=== PATIENT | male | born 1975 | race Caucasian/White ===

== ENCOUNTER 2019-11-27 11:23 | Outpatient (CLI) | payer MEDICAID, SELFPAY ==
--- NOTE | ~2019-11-27 | XR_ITS ---
EXAMINATION: XR chest 2V DATE: 11/27/2019 11:52 INDICATION: Shortness of breath TECHNIQUE: PA and lateral views of the chest are obtained. COMPARISON: None available FINDINGS: The lungs are free of acute opacities. There is no pleural effusion or pneumothorax. The ca rdiomediastinal silhouette is normal. The visualized bones and soft tissues are unremarkable. IMPRESSION: 1. No acute cardiopulmonary abnormality. Reviewed, dictated and finalized at location A.
[2019-11-27 11:46] LABS: Add Urine Microscopic? NO; Appearance Urine Clear (Clear); Basophils Absolute Auto 0.07 K/mm3 (0.00-0.10); Basophils Percent Auto 1.2 % (0.0-1.0); Bilirubin Urine Negative (Negative); Blood Urine Negative (Negative); Color Urine Yellow (Yellow); Eosinophils Percent Auto 3.6 % (1.0-6.0); Glucose Urine UA Negative (Negative); Hematocrit 45.8 % (40.0-54.0); Hemoglobin 16.2 g/dL (14.0-18.0); Immature Granulocyte Absolute 0.02 K/mm3 (0.00-0.00); Immature Granulocyte Percent A 0.4 % (0.0-0.0); Ketones Urine Negative (Negative); Leukocyte Esterase Ur Negative (Negative); Lymphocytes Absolute Auto 1.15 K/mm3 (1.10-4.50); Lymphocytes Percent Auto 20.4 % (18.0-42.0); Mean Corpuscular HGB Conc 35.4 g/dL (32.0-36.0); Mean Corpuscular Hemoglobin 30.1 pg (27.0-31.0); Mean Platelet Volume 9.2 fl (8.7-11.0); Monocytes Absolute Auto 0.68 K/mm3 (0.10-0.90); Monocytes Percent Auto 12.1 % (2.0-11.0); Neutrophils Absolute Auto 3.5 K/mm3 (1.7-7.2); Neutrophils Percent Auto 62.3 % (50.0-70.0); Nitrate Urine Negative (Negative); Platelet Count Result 248 K/mm3 (150-420); Protein Urine Negative (Negative); Red Blood Count 5.39 M/mm3 (4.70-6.10); Red Cell Distribution Width 12.4 % (11.6-14.4); Specific Grav Ur 1.015 (1.010-1.020); Urobilinogen Urine 0.2 mg/dL (0.2-1.0); White Blood Count 5.6 K/mm3 (4.8-10.8)
[2019-11-27 12:12] LABS: Alanine Aminotransferase 70 U/L (16-63); Albumin Level 4.1 g/dL (3.4-5.0); Alkaline Phosphatase 48 U/L (46-116); Aspartate Amino Transferase 28 U/L (15-37); Bilirubin,Total 0.7 mg/dL (0.00-1.00); Blood Urea Nitrogen 14 mg/dL (7-18); Carbon Dioxide 27 mmol/L (21-32); Chloride 103 mmol/L (98-108); Cholesterol 206 mg/dL (0-200); Estimated Glomerular Filt Rate > 60; Glucose 106 mg/dL (70-99); HDL Direct 30 mg/dL (40-60); LDL Cholesterol Calculated 127 mg/dL (<130); Osmolality Calculated 286 mOsm/kg (285-295); Sodium 138 mmol/L (136-145); Thyroid Stimulating Hormone 2.03 uIU/mL (0.36-3.74); Triglycerides 243 mg/dL (0-150)
[2019-11-27 12:14] LABS: BNP < 5 pg/mL (0-100)
[2019-11-30 03:03] LABS: Hepatitis A Antibody IgM Nonreactive; Hepatitis B Core Antibody Nonreactive (Nonreactive); Hepatitis B Surface Antigen Nonreactive (Nonreactive); Hepatitis C Signal to Cutoff 0.46 ratio (<1.00); Hepatitis C Virus Antibody Nonreactive (Nonreactive)
== END 2019-11-27 11:24 | disposition home or self-care (01) ==
LOC: CHSLAB 11:34
PROVIDERS: PCP Internal Medicine; Visit Provider Internal Medicine
DX: Z00.00 Encounter for general adult medical examination without abnormal findings (principal); R06.00 Dyspnea, unspecified; R79.89 Other specified abnormal findings of blood chemistry
CPT/HCPCS: 36415; 71046; 80053; 80061; 80074; 81003; 83880; 84443; 85025

== ENCOUNTER 2019-12-08 07:45 | Outpatient (CLI) | payer SELFPAY ==
--- NOTE | ~2019-12-08 | US_ITS ---
EXAMINATION: US right upper quadrant DATE: 12/08/2019 08:20 INDICATION: Elevated liver enzymes TECHNIQUE: Multiple grayscale and Doppler ultrasound images of the abdomen were obtained. COMPARISON: None FINDINGS: The pancreatic head and body are normal in appearance. The pancreatic tail is not visualized. Visual ized proximal to mid inferior vena cava is normal. Liver has normal contour, with a smooth surface. T here is increased parenchymal echogenicity and coarsened echotexture consistent with diffuse hepatic steatosis. Typical small geographic region of focal fatty sparing along the gallbladder fossa. There is a more discrete nodular hypoechoic region in the left hepatic lobe measuring 1.6 x 1.2 x 1.3 cm. N o intrahepatic biliary duct dilation suspected. Portal venous flow was seen in the hepatopetal, jose ramon l direction and has normal Doppler waveform. The gallbladder is normal in appearance. There is no ch olelithiasis. The common bile duct measures 3 mm, which is normal. Sonographic Malhotra sign was report ed as negative by the counter manager. IMPRESSION: 1. Diffuse hepatic steatosis with focal fatty sparing along the gallbladder fossa. 2. 1.6 cm hypoechoic nodule in the left hepatic lobe. Differential would include either additional at ypical region of focal fatty sparing or neoplasm, either benign such as hemangioma or focal nodular h yperplasia or malignant either primary or metastatic. Recommend further evaluation with pre and postc ontrast MRI or CT. Reviewed, dictated and finalized at location A. IMPRESSION: 1. Diffuse hepatic steatosis with focal fatty sparing along the gallbladder fos sa. 2. 1.6 cm hypoechoic nodule in the left hepatic lobe. Differential would includ e either additional atypical region of focal fatty sparing or neoplasm, either benign such as hemangioma or focal nodular hyperplasia or malignant either prim vj or metastatic. Recommend further evaluation with pre and postcontrast MRI o r CT.
== END 2019-12-08 07:46 | disposition home or self-care (01) ==
PROVIDERS: PCP Internal Medicine; Visit Provider Internal Medicine
DX: R79.89 Other specified abnormal findings of blood chemistry (principal)
CPT/HCPCS: 76705

== ENCOUNTER 2020-01-09 09:27 | Outpatient (CLI) | payer OTHER, SELFPAY ==
--- NOTE | ~2020-01-09 | MR_ITS ---
EXAMINATION: MR abdomen wo/w con DATE: 01/09/2020 11:16 INDICATION: Liver mass. TECHNIQUE: Magnetic resonance imaging (MRI) of the abdomen was performed without and with 20 mL Multi Cooper intravenous contrast. Sequences included coronal T2-weighted FS FSE, coronal and axial FS FIEST A, axial T2-weighted FSE, coronal LAVA-flex, axial STIR FSE, axial DWI, axial dual-echo T1-weighted F SPGR, and axial LAVA. Postcontrast sequences included coronal LAVA-flex and a time course of axial LA VA. COMPARISON: Ultrasound abdomen 12/08/2019 FINDINGS: In the left hepatic lobe, there is a 13 mm arterially hyperenhancing mass. No washout. There is mild splenomegaly measuring 13.4 cm. The gallbladder, pancreas, adrenal glands, and kidneys are normal. Th ere are no dilated loops of bowel. There are no pathologically enlarged lymph nodes. There is no free intraperitoneal fluid. IMPRESSION: 1. 13 mm arterially hyperenhancing liver mass correlating with the ultrasound abnormality. In the abs ence of known malignancy or chronic liver disease, this finding is likely a hemangioma or focal nodul ar hyperplasia. 2. Mild splenomegaly. Reviewed, dictated and finalized at location E. IMPRESSION: 1. 13 mm arterially hyperenhancing liver mass correlating with the ultrasound a bnormality. In the absence of known malignancy or chronic liver disease, this f inding is likely a hemangioma or focal nodular hyperplasia. 2. Mild splenomegaly.
[2020-01-09 10:04] LABS: Estimated Glomerular Filt Rate > 60
== END 2020-01-09 09:28 | disposition home or self-care (01) ==
LOC: CHSIMG 09:28
PROVIDERS: PCP Internal Medicine; Visit Provider Internal Medicine
DX: R16.0 Hepatomegaly, not elsewhere classified (principal)
CPT/HCPCS: 36415; 74183; A9577

== ENCOUNTER 2020-12-14 12:15 | Outpatient (CLI) | payer OTHER, SELFPAY ==
[2020-12-14 13:25] LABS: Influenza A QL RT-PCR Negative (Negative); Influenza B QL RT-PCR Negative (Negative); SARS-CoV-2 RNA PCR Positive (Negative)
== END 2020-12-14 12:16 | disposition home or self-care (01) ==
LOC: CHSLAB 12:20
PROVIDERS: PCP Internal Medicine; Visit Provider Internal Medicine
DX: U07.1 COVID-19 (principal)
CPT/HCPCS: 87502; C9803; U0003; U0005

== ENCOUNTER 2020-12-26 17:19 | Outpatient (CLI) | payer OTHER, SELFPAY ==
--- NOTE | ~2020-12-26 | XR_ITS ---
EXAMINATION: XR chest 2V 12/26/2020 17:46 INDICATION: Cough and shortness of breath PROCEDURE: PA and lateral view of the chest COMPARISON: 11/27/2019 FINDINGS: The lungs are clear. The cardiomediastinal silhouette is within normal limits. There are no pleural effusions. There is no pneumothorax suspected. IMPRESSION: 1: NO ACUTE CARDIOPULMONARY DISEASE. Reviewed, dictated and finalized at location A.
[2020-12-26 17:42] LABS: Basophils Absolute Auto 0.05 K/mm3 (0.00-0.10); Basophils Percent Auto 0.7 % (0.0-1.0); Eosinophils Absolute Auto 0.08 K/mm3 (0.02-0.50); Hematocrit 40.7 % (40.0-54.0); Hemoglobin 14.6 g/dL (14.0-18.0); Immature Granulocyte Absolute 0.05 K/mm3 (0.00-0.00); Immature Granulocyte Percent A 0.7 % (0.0-0.0); Lymphocytes Absolute Auto 1.02 K/mm3 (1.10-4.50); Lymphocytes Percent Auto 13.4 % (18.0-42.0); Mean Corpuscular HGB Conc 35.9 g/dL (32.0-36.0); Mean Corpuscular Hemoglobin 30.5 pg (27.0-31.0); Mean Corpuscular Volume 85.1 fL (78.0-102.0); Mean Platelet Volume 9.1 fl (8.7-11.0); Monocytes Absolute Auto 0.76 K/mm3 (0.10-0.90); Monocytes Percent Auto 9.9 % (2.0-11.0); Neutrophils Absolute Auto 5.7 K/mm3 (1.7-7.2); Neutrophils Percent Auto 74.3 % (50.0-70.0); Platelet Count Result 261 K/mm3 (150-420); Red Blood Count 4.78 M/mm3 (4.70-6.10); White Blood Count 7.6 K/mm3 (4.8-10.8)
[2020-12-26 18:05] LABS: Alanine Aminotransferase 36 U/L (16-63); Albumin Level 3.9 g/dL (3.4-5.0); Alkaline Phosphatase 52 U/L (46-116); Anion Gap 9 mmol/L (8-16); Aspartate Amino Transferase 20 U/L (15-37); Bilirubin,Total 0.7 mg/dL (0.00-1.00); Blood Urea Nitrogen 16 mg/dL (7-18); CRP < 0.5 mg/dL (0.0-0.9); Calcium 8.6 mg/dL (8.5-10.1); Carbon Dioxide 29 mmol/L (21-32); Chloride 104 mmol/L (98-108); Estimated Glomerular Filt Rate > 60; Glucose 91 mg/dL (70-99); Osmolality Calculated 295 mOsm/kg (285-295); Potassium 3.8 mmol/L (3.5-5.1); Sodium 142 mmol/L (136-145); Total Protein 7.5 g/dL (6.4-8.2)
[2020-12-26 18:19] LABS: D Dimer 0.25 mg/L (0.19-0.50)
== END 2020-12-26 17:20 | disposition home or self-care (01) ==
LOC: CHSIMG 17:25
PROVIDERS: PCP Internal Medicine; Visit Provider Internal Medicine
DX: R05 Cough (principal); R06.02 Shortness of breath; U07.1 COVID-19
CPT/HCPCS: 36415; 71046; 80053; 85025; 85380; 86140

== ENCOUNTER 2024-03-06 13:17 | Outpatient (CLI) | payer OTHER, SELFPAY ==
--- NOTE | ~2024-03-06 | XR_ITS ---
Clinical Indication: Bodyaches, fatigue PA and lateral views of the chest: Comparison: 12/26/2020 Findings: The lungs are clear, without evidence of focal consolidation or pleural effusion. Cardiome diastinal silhouette is within normal limits. Bones and soft tissues are unremarkable. Impression: Normal chest. Reviewed, dictated and finalized at location . Impression: Normal chest.
== END 2024-03-06 13:18 | disposition home or self-care (01) ==
LOC: CHSIMG 13:19
PROVIDERS: PCP Internal Medicine; Visit Provider Nurse Practitioner Family
DX: R68.83 Chills (without fever) (principal); R53.83 Other fatigue; E78.5 Hyperlipidemia, unspecified
CPT/HCPCS: 71046

== ENCOUNTER 2025-02-16 16:15 | Outpatient (CLI) | payer OTHER, SELFPAY ==
--- NOTE | ~2025-02-16 | XR_ITS ---
Clinical Indication: Inhalational injury PA and lateral views of the chest: Comparison: 03/06/2024 Findings: The lungs are clear, without evidence of focal consolidation or pleural effusion. Cardiome diastinal silhouette is within normal limits. Bones and soft tissues are unremarkable. Impression: Normal chest. Reviewed, dictated and finalized at [facility]. Impression: Normal chest.
--- OUTSIDE RECORDS SUMMARY | 2025-02-16 16:18 | XMS_ITS | Clinical Summary ---
Author Organization [facility] Address [address] [place] [address] Care Team Providers Care Customer Contact Specialist Name Role Phone Unavailable Primary Care Provider Unavailabl e Source Comments [facility],non-owned Affiliates and Associated Physician Practices is amultiple site organization consisting of ambulatory clinics and hospital sitesin [place], [place], [place] and [place]. This disclosure is being madepursuant to the Care Everywhere program and may not contain all information available regarding this patient. Last updated 18.[facility] Allergies No known active allergies Medications * Be aware that medications may not be up to date on this document. Alwaysverify current medications with the patient. Esomeprazole Magnesium (NEXIUM PO) Active predniSONE (DELTASONE) 20 MG tablet Take 60 mg (3 tabs) on day 1, then 2 tabs (40 mg) X 6 days 15 Tab 0 07/06/2015 Active Social History Tobacco Use Types Packs/Day Years Used Date Smoking Tobacco: Never Alcohol Use Standard Drinks/Week Comments Yes 0 (1 standard drink = 0.6 oz pur e alcohol) occ Sex and Gender Information Value Date Recorded Sex Assigned at Not on file Legal Sex Male 3:17 AM LENS EDGE GRINDER MACHINE Gender Identity Not on file Sexual Orientation Not on file Last Filed Vital Signs Vital Sign Reading Time Taken Comments Blood Pressure 134/86 07/06/2015 3:55 PM LENS EDGE GRINDER MACHINE Pulse 87 07/06/2015 3:55 PM LENS EDGE GRINDER MACHINE Temperature 36.7 C (98 F) 07/06/2015 3:55 PM LENS EDGE GRINDER MACHINE Respiratory Rate 16 07/06/2015 3:55 PM LENS EDGE GRINDER MACHINE Oxygen Saturation 98% 07/06/2015 3:55 PM LENS EDGE GRINDER MACHINE Inhaled Oxygen Concentration - - Weight 84.8 kg (187 lb) 07/06/2015 3:55 PM LENS EDGE GRINDER MACHINE Height 180.3 cm (5' 11) 07/06/2015 3:55 PM LENS EDGE GRINDER MACHINE Body Mass Index 26.08 07/06/2015 3:55 PM LENS EDGE GRINDER MACHINE Plan of Treatment Health Maintenance Due Date Last Done Comments COLOGUARD (AGES 45-75) - COL ON CA SCREENING 1975 COLON MONITORING 1975 COLONOSCOPY - COLON CA SCREENING 1975 CT COLONOGRAPHY - COLON CA SCREENING 1975 Colorectal Cancer Screening 1975 FIT - COLON CA SCREENING 1975 FLEX SIG - COLON CA SCREENING 1975 LIPID TESTING 1975 HIV SCREENING 12/23/1990 HEPATITIS C SCREENING 12/19/1993 DTAP/TDAP/TD VACCINES (1 - Tdap) 12/23/1994 HEPATITIS B VACCINE (1 of 3 - 19+ 3-dose series) 12/23/1994 COVID-19 VACCINE (1 - 2023-2 5 season) 2024 DEPRESSION SCREENING 08/05/2024 INFLUENZA VACCINE (#1) 2025 ZOSTER VACCINE (1 of 2) 12/23/2025 HIB VACCINE Aged Out No longer eligi ble based on patient's age to complete this topic HPV VACCINE Aged Out No longer eligi ble based on patient's age to complete this topic MENINGOCOCCAL (Group B) VACC INE SHARED DECISION-MAKING Aged Out No longer eligibl e based on patient's age to complete this topic MENINGOCOCCAL GROUPS A/C/Y/W VACCINE Aged Out No longer eligible b ased on patient's age to complete this topic Insurance [facility]
--- OUTSIDE RECORDS SUMMARY | 2025-02-16 16:18 | XMS_ITS | Clinical Summary ---
Author Organization [facility] Address [address] [facility], [address] [address] Phone Care Team Providers Care Chain Saw Operator Name Role Phone Hayder Barrientos MD Primary Care Provider [phone] Allergies No known active allergies Medications omeprazole (PRILOSEC) 40 MG CAPSULE DELAYED RELEASE TAKE 1 CAPSULE BY MOUTH EVERY DAY 1 08/16/2018 Active Family History Medical History Relation Name Comments Emphysema Father Cancer Maternal Grandfather stomach Relation Name Status Comments Father Maternal Grandfather Mother Alive Social History Tobacco Use Types Packs/Day Years Used Date Smoking Tobacco: Never Smokeless Tobacco: Never Alcohol Use Standard Drinks/Week Comments No 0 (1 standard drink = 0.6 oz pur e alcohol) Sex and Gender Information Value Date Recorded Sex Assigned at Not on file Legal Sex Male 10:34 AM COMBINATION OPERATOR Gender Identity Not on file Sexual Orientation Not on file Last Filed Vital Signs Vital Sign Reading Time Taken Comments Blood Pressure 125/89 09/22/2018 10:02 AM COMBINATION OPERATOR Pulse 70 09/22/2018 8:56 AM COMBINATION OPERATOR Temperature 36 C (96.8 F) 09/22/2018 10:02 AM COMBINATION OPERATOR Respiratory Rate 14 09/22/2018 10:02 AM COMBINATION OPERATOR Oxygen Saturation 96% 09/22/2018 10:02 AM COMBINATION OPERATOR Inhaled Oxygen Concentration - - Weight 87.1 kg (192 lb) 09/03/2018 9:00 AM COMBINATION OPERATOR Height 177.8 cm (5' 10) 09/03/2018 9:00 AM COMBINATION OPERATOR Body Mass Index 27.55 09/03/2018 9:00 AM COMBINATION OPERATOR Plan of Treatment Health Maintenance Due Date Last Done Comments Hepatitis C Virus (HCV) Screening 1975 TdaP Immunization 1975 Hepatitis B Immunization (1 of 3 - 19+ 3-dose series) 12/23/1994 Cologuard 12/23/2020 Colonoscopy 12/23/2020 Colorectal Cancer Screening 12/23/2020 Immunochemical Fecal Occult Blood 12/23/2020 SARS-COV-2 Immunization (2023- season) 2024 Influenza Immunization (#1) 2025 Respiratory Syncytial Virus (RSV) Immunization (Adult) (1 - 1-dose 75+ series) 12/23/2050 Human Papillomavirus (HPV) Immunization Aged Out No longer eligible b ased on patient's age to complete this topic Meningococcal Immunization (ACWY) Aged Out No longer eligible based on patient's age to complete this topic Pneumococcal Immunization Combined Aged Out No longer eligible based on patient's age to complete this topic Rotavirus Immunization Aged Out No lo nger eligible based on patient's age to complete this topic Insurance MEDICAID [employer] Care Teams Chain Saw Operator Relationship Specialty Start Date End Date Hayder Barrientos MD [address] [place] [address] PCP - General Internal Medicine 08/25/18
--- OUTSIDE RECORDS SUMMARY | 2025-02-16 16:18 | XMS_ITS | Clinical Summary ---
Author Organization [facility] Address [address] [place] [address] Care Team Providers Care Research Computing Specialist Name Role Phone Unavailable Primary Care Provider Unavailabl e Social History Tobacco Use Types Packs/Day Years Used Date Smoking Tobacco: Never Assessed Sex and Gender Information Value Date Recorded Sex Assigned at Not on file Legal Sex Male 7:41 AM CDT Gender Identity Not on file Sexual Orientation Not on file Plan of Treatment Health Maintenance Due Date Last Done Comments Colorectal Cancer Screening Colonoscopy (10 Years) 1975 Annual Physical 12/23/1978 Hepatitis C 12/23/1993 DTaP, Tdap and Td Vaccines ( 1 - Tdap) 12/23/1994 Hepatitis B Vaccines (1 of 3 - 19+ 3-dose series) 12/23/1994 COVID-19 Vaccine ( - 2023-2 5 season) 2024 Meningococcal B Vaccine Aged Out No l onger eligible based on patient's age to complete this topic Meningococcal Vaccine Aged Out No xochitl celso eligible based on patient's age to complete this topic Pneumococcal Vaccine: Pediat rics (0 to 5 Years) and At-Risk Patients (6 to 49 Years) Aged Out No longer eligible b ased on patient's age to complete this topic RSV Immunizations Under 20 Months Aged Out No longer eligible based on patient's age to complete this topic
--- OUTSIDE RECORDS SUMMARY | 2025-02-16 16:18 | XMS_ITS | Clinical Summary ---
Author Organization [facility] Address [address] [place] [address] Care Team Providers Care Campus Administrator Name Role Phone Katherine Kellogg RN Unavailable [phone] Hayder Barrientos MD Primary Care Provider [phone] Allergies No known active allergies Medications esomeprazole DR (NexIUM) 40 mg capsule Take 40 mg by mouth daily before breakfast Active Active Problems Problem Noted Date Diagnosed Date Cirrhosis, nonalcoholic 08/10/2020 Assessment & Plan (08/10/2020 12:53 PM MEDICAL TECHNOLOGIST GENERALIST): Based on nodular appearance of the liver on the MRI and splenomegaly suggestive of portal hypertension. The etiology of the cirrhosis is unclear. He has no obvious risk factors. Thus, I will check a number of serologies in levels to rule out multiple causes of liver disease. We discussed scarring of the liver due to longstanding inflammation. This scarring can lead to an increase in pressure within the blood vessels, leading to varicose type veins in the esophagus, fluid in the abdomen, and the buildup of toxins that can cause confusion. Cirrhosis increases the risk of the development of hepatocellular carcinoma. This necessitates screening for liver cancer with an abdominal ultrasound approximately every 6 months. We discussed the potential need for a liver transplant, if liver function worsened and there are no obvious contraindications. If the blood tests identify a treatable liver disease, I will proceed as clinically indicated. If the blood tests are unrevealing, additional intervention may be needed. Gastroesophageal reflux disease without esophagi tis 08/10/2020 Liver lesion, left lobe 08/10/2020 Assessment & Plan (08/10/2020 12:51 PM MEDICAL TECHNOLOGIST GENERALIST): Based on imaging studies, concerning for hepatocellular carcinoma. The lack of growth is encouraging, however, the lesion needs to be closely monitored. He is scheduled for an MRI later today. We discussed liver cancer and its current treatment. Surgical removal is an option in patients without cirrhosis. In cirrhotic patients, resection is usually associated with post-operative decompensation and/or liver failure. Chemotherapy routinely is not used as first line therapy, due to a lack of response. Angiographic procedures, such as trans-arterial chemoembolization and trans- arterial radio-embolization, are often used as a means of killing off cancer cells with follow up imaging 1-3 months later. This is not seen as a cure, but may eradicate a majority of the cancer. Liver transplantation is another option, usually performed after one of the above procedures. If the cancer meets well defined criteria, liver transplantation can be performed successfully with a 75% 5 year cancer free survival. Further recommendations based on the results of the MRI. NAFLD (nonalcoholic fatty liver disease) 021 Assessment & Plan (08/10/2020 12:54 PM MEDICAL TECHNOLOGIST GENERALIST): Fatty infiltration of the liver has been seen on several imaging studies. He does not have the usual features of non-alcoholic steatohepatitis, i.e., obesity and features of the metabolic syndrome. Further recommendations based on the results of the studies ordered. Surgical History Surgery Date Site/Laterality Comments ARTHROSCOPIC REPAIR ACL Left HERNIA REPAIR NOSE SURGERY 08/05/2008 - 08/04/2009 Medical History Medical History Date Comments Pneumonia Mitral valve prolapse Cancer (HCC) Family History Medical History Relation Name Comments COPD Father Hyperlipidemia Mother Hypothyroidism Mother Relation Name Status Comments Father Mother Social History Tobacco Use Types Packs/Day Years Used Date Smoking Tobacco: Never Smokeless Tobacco: Never Alcohol Use Standard Drinks/Week Comments Not Currently 0 (1 standard drink = 0.6 oz pur e alcohol) Remote Personal Safety Answer Date Recorded Getting School Help Needed Not on file 09/29 Sex and Gender Information Value Date Recorded Sex Assigned at Not on file Legal Sex Male 3:15 AM MEDICAL TECHNOLOGIST GENERALIST Gender Identity Not on file Sexual Orientation Not on file 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 Not on file Not on file Obstetrics History Last Filed Vital Signs Vital Sign Reading Time Taken Comments Blood Pressure 137/92 08/10/2020 10:03 AM MEDICAL TECHNOLOGIST GENERALIST Pulse 84 08/10/2020 10:03 AM MEDICAL TECHNOLOGIST GENERALIST Temperature 36.4 C (97.5 F) 08/10/2020 10:03 AM MEDICAL TECHNOLOGIST GENERALIST Respiratory Rate - - Oxygen Saturation - - Inhaled Oxygen Concentration - - Weight 91.5 kg (201 lb 12.8 oz) 021 10:03 AM MEDICAL TECHNOLOGIST GENERALIST Height 180.3 cm (5' 11) 08/10/2020 10: 03 AM MEDICAL TECHNOLOGIST GENERALIST Body Mass Index 28.15 08/10/2020 10:03 AM MEDICAL TECHNOLOGIST GENERALIST Plan of Treatment Not on file Medical Devices Implanted Type Area Aviation Maintenance Technician Device Identifier Shelf Expiration Date Model / Serial / Lot Left Acl Repair-05/02/2009 Implanted:2008 (Quantity not on file) Knee Insurance [facility] Care Teams Campus Administrator Relationship Specialty Start Date End Date Hayder Barrientos MD [address] [address] PCP - General Internal Medicine 02/26/20 Katherine Kellogg RN [address] [address] Secondary Liver Coordinator 02/23/20
--- OUTSIDE RECORDS SUMMARY | 2025-02-16 16:18 | XMS_ITS | Referral Summary ---
Author Organization [facility] Address [address] [place] [address] Care Team Providers Care Bookseamer Blindstitch Name Role Phone Katherine Kellogg RN Unavailable [phone] Hayder Barrientos MD Primary Care Provider [phone] Allergies No known active allergies Medications esomeprazole DR (NexIUM) 40 mg capsule Take 40 mg by mouth daily before breakfast Active Active Problems Problem Noted Date Diagnosed Date Cirrhosis, nonalcoholic 08/10/2020 Assessment & Plan (08/10/2020 12:53 PM EXTRUSION TECHNICIAN): Based on nodular appearance of the liver [...] 08/10/2020 Assessment & Plan (08/10/2020 12:51 PM EXTRUSION TECHNICIAN): Based on imaging studies, concerning for hepatocellular [...] 021 Assessment & Plan (08/10/2020 12:54 PM EXTRUSION TECHNICIAN): Fatty infiltration of the liver has been seen on several imaging studies. He does not have the usual features of non-alcoholic steatohepatitis, i.e., obesity and features of the metabolic syndrome. Further recommendations based on the results of the studies ordered. 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 Not on file Not on file Last Filed Vital Signs Vital Sign Reading Time Taken Comments Blood Pressure 137/92 08/10/2020 10:03 AM EXTRUSION TECHNICIAN Pulse 84 08/10/2020 10:03 AM EXTRUSION TECHNICIAN Temperature 36.4 C (97.5 F) 08/10/2020 10:03 AM EXTRUSION TECHNICIAN Respiratory Rate - - Oxygen Saturation - - Inhaled Oxygen Concentration - - Weight 91.5 kg (201 lb 12.8 oz) 021 10:03 AM EXTRUSION TECHNICIAN Height 180.3 cm (5' 11) 08/10/2020 10: 03 AM EXTRUSION TECHNICIAN Body Mass Index 28.15 08/10/2020 10:03 AM EXTRUSION TECHNICIAN Plan of Treatment Not on file Medical Devices Implanted Type Area Mentally Impaired Teacher Device Identifier Shelf Expiration Date Model / Serial / Lot Left Acl Repair-05/02/2009 Implanted:2008 (Quantity not on file) Knee Insurance [facility] Care Teams Bookseamer Blindstitch Relationship Specialty Start Date End Date Hayder Barrientos MD [address] [address] PCP - General Internal Medicine 02/26/20 Katherine Kellogg, TEJAS [address] [address] Secondary Liver Coordinator 02/23/20
[2025-02-16 16:33] LABS: Hematocrit 38.3 % (40.0-54.0); Hemoglobin 12.7 g/dL (14.0-18.0); Mean Corpuscular HGB Conc 33.2 g/dL (32-36); Mean Corpuscular Hemoglobin 27.1 pg (27.0-31.0); Mean Corpuscular Volume 81.7 fL (78.0-102.0); Platelet Count Result 263 K/mm3 (150-420); Red Blood Count 4.69 M/mm3 (4.70-6.10); White Blood Count 6.5 K/mm3 (4.8-10.8)
[2025-02-16 16:56] LABS: Alanine Aminotransferase 22 U/L (6-50); Albumin Level 4.4 g/dL (3.5-5.1); Alkaline Phosphatase 48 U/L (38-126); Anion Gap 8 mmol/L (4-12); Aspartate Amino Transferase 26 U/L (17-59); Bilirubin,Total 0.9 mg/dL (0.2-1.3); Blood Urea Nitrogen 14 mg/dL (9-20); Calcium 8.8 mg/dL (8.4-10.2); Carbon Dioxide 26 mmol/L (22-30); Chloride 106 mmol/L (98-107); Estimated Glomerular Filt Rate > 60; Glucose 90 mg/dL (65-110); Osmolality Calculated 290 mOsm/kg (285-295); Potassium 3.5 mmol/L (3.4-5.0); Sodium 140 mmol/L (137-145); Total Protein 7.3 g/dL (6.3-8.2)
[2025-02-17 10:56] LABS: Iron 52 ug/dL (49-181)
[2025-02-17 11:05] LABS: Percent Iron Saturation 10 % (20-50)
[2025-02-17 11:32] LABS: Ferritin 6.86 ng/mL (17.9-464)
== END 2025-02-16 16:16 | disposition home or self-care (01) ==
LOC: CHSLAB 16:17
PROVIDERS: PCP Internal Medicine; Visit Provider Nurse Practitioner Family
DX: J68.9 Unspecified respiratory condition due to chemicals, gases, fumes and vapors (principal)
CPT/HCPCS: 36415; 71046; 80053; 82728; 83540; 83550; 85027

== ENCOUNTER 2025-03-17 16:56 | Outpatient (CLI) | payer OTHER, SELFPAY ==
--- NOTE | ~2025-03-17 | XR_ITS ---
EXAMINATION: XR chest 2V Exam Date/Time: 03/17/2025 17:10 CDT HISTORY: cough Comparison: 02/16/2025. RESULT: Lines, tubes, and devices: None. Lungs and pleura: Clear. Cardiomediastinal silhouette: Stable. Other: No acute osseous or upper abdominal finding. IMPRESSION: No acute cardiopulmonary process. Reviewed, dictated and finalized at location K.
--- OUTSIDE RECORDS SUMMARY | 2025-03-17 16:59 | XMS_ITS | Clinical Summary ---
Author Organization [facility] Address [address] [place] [address] Care Team Providers Care Harness Rigger Name Role Phone Unavailable Primary Care Provider Unavailabl e Source Comments [facility],non-owned Affiliates and Associated Physician Practices is amultiple site organization consisting of ambulatory clinics and hospital sitesin [place], [place], [place] and [place]. This disclosure is being madepursuant to the Care Everywhere program and may not contain all information available regarding this patient. Last updated 18.[facility] Allergies No known active allergies Medications * [...] on file Legal Sex Male 3:17 AM BRINE MIXER OPERATOR Gender Identity Not on file Sexual Orientation Not on file Last Filed Vital Signs Vital Sign Reading Time Taken Comments Blood Pressure 134/86 07/06/2015 3:55 PM BRINE MIXER OPERATOR Pulse 87 07/06/2015 3:55 PM BRINE MIXER OPERATOR Temperature 36.7 C (98 F) 07/06/2015 3:55 PM BRINE MIXER OPERATOR Respiratory Rate 16 07/06/2015 3:55 PM BRINE MIXER OPERATOR Oxygen Saturation 98% 07/06/2015 3:55 PM BRINE MIXER OPERATOR Inhaled Oxygen Concentration - - Weight 84.8 kg (187 lb) 07/06/2015 3:55 PM BRINE MIXER OPERATOR Height 180.3 cm (5' 11) 07/06/2015 3:55 PM BRINE MIXER OPERATOR Body Mass Index 26.08 07/06/2015 3:55 PM BRINE MIXER OPERATOR Plan of Treatment Health Maintenance Due [...] patient's age to complete this topic Insurance [facility]
--- OUTSIDE RECORDS SUMMARY | 2025-03-17 16:59 | XMS_ITS | Clinical Summary ---
Author Organization [facility] Address [address] [place] [address] Care Team Providers Care Heating Unit Installer Name Role Phone Katherine Kellogg RN Unavailable [phone] Hayder Barrientos MD Primary Care Provider [phone] Allergies No known active allergies Medications esomeprazole DR (NexIUM) 40 mg capsule Take 40 mg by mouth daily before breakfast Active Active Problems Problem Noted Date Diagnosed Date Cirrhosis, nonalcoholic 08/10/2020 Assessment & Plan (08/10/2020 12:53 PM MOTOR RACER): Based on nodular appearance of the liver [...] 08/10/2020 Assessment & Plan (08/10/2020 12:51 PM MOTOR RACER): Based on imaging studies, concerning for hepatocellular [...] 021 Assessment & Plan (08/10/2020 12:54 PM MOTOR RACER): Fatty infiltration of the liver has been [...] on file Legal Sex Male 3:15 AM MOTOR RACER Gender Identity Not on file Sexual Orientation Not on file 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 Not on file Not on file Obstetrics History Last Filed Vital Signs Vital Sign Reading Time Taken Comments Blood Pressure 137/92 08/10/2020 10:03 AM MOTOR RACER Pulse 84 08/10/2020 10:03 AM MOTOR RACER Temperature 36.4 C (97.5 F) 08/10/2020 10:03 AM MOTOR RACER Respiratory Rate - - Oxygen Saturation - - Inhaled Oxygen Concentration - - Weight 91.5 kg (201 lb 12.8 oz) 021 10:03 AM MOTOR RACER Height 180.3 cm (5' 11) 08/10/2020 10: 03 AM MOTOR RACER Body Mass Index 28.15 08/10/2020 10:03 AM MOTOR RACER Plan of Treatment Not on file Medical Devices Implanted Type Area Assistant Art Director Device Identifier Shelf Expiration Date Model / Serial / Lot Left Acl Repair-05/02/2009 Implanted:2008 (Quantity not on file) Knee Insurance [facility] Care Teams Heating Unit Installer Relationship Specialty Start Date End Date Hayder Barrientos MD [address] [address] PCP - General Internal Medicine 02/26/20 Katherine Kellogg RN [address] [address] Secondary Liver Coordinator 02/23/20
--- OUTSIDE RECORDS SUMMARY | 2025-03-17 16:59 | XMS_ITS | Clinical Summary ---
Author Organization [facility] Address [address] [place] [address] Care Team Providers Care Risk Officer Name Role Phone Unavailable Primary Care Provider [...]
--- OUTSIDE RECORDS SUMMARY | 2025-03-17 16:59 | XMS_ITS | Clinical Summary ---
Author Organization [facility] Address [address] [facility], [address] [address] Phone Care Team Providers Care Section Crews Activities Clerk Name Role Phone Hayder Barrientos MD Primary Care Provider [phone] Allergies No known active allergies Medications omeprazole [...] on file Legal Sex Male 10:34 AM TAXICAB STARTER Gender Identity Not on file Sexual Orientation Not on file Last Filed Vital Signs Vital Sign Reading Time Taken Comments Blood Pressure 125/89 09/22/2018 10:02 AM TAXICAB STARTER Pulse 70 09/22/2018 8:56 AM TAXICAB STARTER Temperature 36 C (96.8 F) 09/22/2018 10:02 AM TAXICAB STARTER Respiratory Rate 14 09/22/2018 10:02 AM TAXICAB STARTER Oxygen Saturation 96% 09/22/2018 10:02 AM TAXICAB STARTER Inhaled Oxygen Concentration - - Weight 87.1 kg (192 lb) 09/03/2018 9:00 AM TAXICAB STARTER Height 177.8 cm (5' 10) 09/03/2018 9:00 AM TAXICAB STARTER Body Mass Index 27.55 09/03/2018 9:00 AM TAXICAB STARTER Plan of Treatment Health Maintenance Due Date [...] Insurance MEDICAID [employer] Care Teams Section Crews Activities Clerk Relationship Specialty Start Date End Date Hayder Barrientos MD [address] [place] [address] PCP - General Internal Medicine 08/25/18
[2025-03-17 17:16] LABS: Hematocrit 42.0 % (40.0-54.0); Hemoglobin 14.1 g/dL (14.0-18.0); Immature Reticulocyte Fraction 14.0 % (2.0-16.52); Mean Corpuscular HGB Conc 33.6 g/dL (32-36); Mean Corpuscular Hemoglobin 27.9 pg (27.0-31.0); Mean Corpuscular Volume 83.2 fL (78.0-102.0); Platelet Count Result 282 K/mm3 (150-420); Red Blood Count 5.05 M/mm3 (4.70-6.10); Reticulocyte Hemoglobin Conten 34.7 pg (28.0-35.0); Reticulocytes Absolute 0.08 M/mm3 (0.02-0.10); White Blood Count 6.6 K/mm3 (4.8-10.8)
[2025-03-17 17:18] LABS: Add Urine Microscopic? NO; Appearance Urine Clear (Clear); Glucose Urine UA Negative (Negative); Leukocyte Esterase Ur Negative (Negative); Nitrate Urine Negative (Negative); Specific Grav Ur 1.010 (1.010-1.020)
[2025-03-17 17:22] LABS: Alanine Aminotransferase 22 U/L (6-50); Albumin Level 4.7 g/dL (3.5-5.1); Alkaline Phosphatase 52 U/L (38-126); Anion Gap 9 mmol/L (4-12); Aspartate Amino Transferase 26 U/L (17-59); Bilirubin,Total 0.5 mg/dL (0.2-1.3); Blood Urea Nitrogen 12 mg/dL (9-20); Calcium 9.1 mg/dL (8.4-10.2); Carbon Dioxide 27 mmol/L (22-30); Chloride 106 mmol/L (98-107); Creatine Kinase 164 U/L (55-170); Estimated Glomerular Filt Rate > 60; Glucose 105 mg/dL (65-110); Osmolality Calculated 293 mOsm/kg (285-295); Potassium 3.7 mmol/L (3.4-5.0); Sodium 142 mmol/L (137-145); Total Protein 7.9 g/dL (6.3-8.2)
[2025-03-17 17:36] LABS: NT Pro B Type Natriuretic Pept < 20 pg/mL (19.9-100); Troponin I < 0.012 ng/mL (0.000-0.034)
[2025-03-17 17:40] LABS: Free T4 Free Thyroxine 0.91 ng/dL (0.78-2.19)
[2025-03-17 17:54] LABS: Thyroid Stimulating Hormone 1.620 uIU/mL (0.465-4.680)
[2025-03-17 17:58] LABS: Ferritin 11.00 ng/mL (17.9-464)
[2025-03-17 19:08] LABS: Iron 48 ug/dL (49-181)
[2025-03-17 19:18] LABS: Percent Iron Saturation 10 % (20-50)
== END 2025-03-17 16:57 | disposition home or self-care (01) ==
LOC: CHSLAB 16:58
PROVIDERS: PCP Internal Medicine; Visit Provider Nurse Practitioner Family
DX: R07.9 Chest pain, unspecified (principal); R06.09 Other forms of dyspnea; D50.9 Iron deficiency anemia, unspecified; R10.13 Epigastric pain; J68.9 Unspecified respiratory condition due to chemicals, gases, fumes and vapors; J32.1 Chronic frontal sinusitis
CPT/HCPCS: 36415; 71046; 80053; 81003; 82550; 82553; 82728; 83540; 83550; 83880; 84439; 84443; 84484; 85027; 85046; 85380

== ENCOUNTER 2025-04-13 12:04 | Outpatient (CLI) | payer OTHER, SELFPAY ==
--- NOTE | ~2025-04-13 | CT_ITS ---
CORRECTED REPORT corrected ordering doctor to MD YOSELYN Renee 04/22/25 This report was recreated on 04/22/25. Original report was EXAMINATION: CT sinus wo con DATE: 04/13/2025 12:40 INDICATION: Chronic sinusitis. TECHNIQUE: Computed tomography (CT) of the paranasal sinuses was performed without intravenous contrast. Iterative reconstruction technique was employed. The dose-length product was 308.27 mGy-cm. COMPARISON: None FINDINGS: There is mucosal thickening in the frontal sinuses including complete opacification of the frontal recesses. There is extensive mucosal thickening in the ethmoid and sphenoid sinuses and moderate mucosal thickening in the maxillary sinuses. There are bilateral Diane cells. The ostiomeatal units are occluded bilaterally. There is rightward deviation of anterior nasal septum. There are old fracture deformities of the nasal bones. IMPRESSION: 1. Extensive mucosal thickening in the paranasal sinuses with occluded ostiomeatal units. Reviewed, dictated and finalized at location E. IMPRESSION: 1. Extensive mucosal thickening in the paranasal sinuses with occluded ostiomea michelle units.
--- NOTE | 2025-04-13 12:12 | ECHO_ITS ---
Patient Info Name: Shayan Steward Age: 49 years : 1975 Gender: Male Ht: 71 in Wt: 198 lbs BSA: 2.14 m2 HR: 64 bpm BP: 136 / 81 mmHg Technical Quality: Good Exam Date: 04/13/2025 12:56 PM Patient Status: O Admit Date: 04/13/2025 Exam Type: CA echo doppler color flow Complete two-dimensional, color flow and Doppler transthoracic echocardiogram is performed. Staff Referring Physician: Lisa Umanzor Trench Pipe Layer Helper: Maria Isabel Teran Attending Provider: Lisa Umanzor Summary 1. Complete two-dimensional, color flow and Doppler transthoracic echocardiogram is performed. 2. Left ventricular chamber dimension is normal. 3. Left ventricular systolic function is normal, estimated at 60-65. 4. The left ventricular diastolic function is normal. 5. E/e' 6 is not elevated. 6. Left atrial chamber dimension is mildly enlarged. 7. There is trace mitral valve regurgitation. 8. There is trace tricuspid valve regurgitation. 9. There is trace pulmonic regurgitation. Left Ventricle E/e' 6 is not elevated. Left ventricular chamber dimension is normal. Left ventricular systolic function is normal, estimated at 60-65. The left ventricular diastolic function is normal. Right Ventricle Right ventricular chamber dimension is normal. Right ventricular systolic function is normal and with normal TAPSE 2.0 cm. Left Atria Left atrial chamber dimension is mildly enlarged. Right Atria Right atrial chamber dimension is normal. Aortic Valve The aortic valve is trileaflet. There is no aortic valve stenosis. There is no aortic valve regurgitation. Pulmonic Valve There is trace pulmonic regurgitation. Mitral Valve There is no mitral valve stenosis. There is trace mitral valve regurgitation. Tricuspid Valve There is trace tricuspid valve regurgitation. RVSP is not measured due to an in adequate TR jet. Pericardium/Pleural There is no pericardial effusion. Inferior Vena Cava Normal inferior vena cava with >50% collapse upon inspiration consistent with normal right atrial pressure, 5 mmHg. Aorta The aortic root size at the sinus of Valsalva is normal. Left Ventricular Outflow Tract Name Value Normal LVOT 2D LVOT Diameter 2.0 cm LVOT Doppler LVOT Peak Velocity 88 cm/s LVOT Peak Gradient 3 mmHg LVOT Mean Gradient 2 mmHg LVOT VTI 20 cm LVOT Stroke Volume 61 ml LVOT CO 3.9 l/min LVOT CI 1.8 l/min/m2 Pulmonic Valve Name Value Normal RVOT Doppler RVOT Peak Velocity 65 cm/s RVOT Peak Gradient 2 mmHg PV Doppler PV Peak Velocity 127 cm/s PV Peak Gradient 6 mmHg Mitral Valve Name Value Normal MV Diastolic Function MV E Peak Velocity 67 cm/s MV A Peak Velocity 66 cm/s MV E/A 1.0 MV Decel Time (PW) 336 ms MV Annular TDI MV E/e' (Septal) 7.1 MV E/e' (Lateral) 6.3 MV E/e' (Average) 6.7 Tricuspid Valve Name Value Normal Estimated PAP/RSVP RA Pressure 5 mmHg <=5 Aortic Valve Name Value Normal AV Doppler AV Peak Velocity 138 cm/s AV Peak Gradient 8 mmHg AV Area (Cont Eq Deuce) 1.9 cm2 AV DI (Deuce) 0.64 AV Regurgitation 2D LVOT Area 3.0 cm2 Ventricles Name Value Normal LV Dimensions 2D/MM IVS Diastolic Thickness (2D) 0.8 cm 0.6-1.0 LVID Diastole (2D) 4.4 cm 4.2-5.8 LVIW Diastolic Thickness (2D) 0.9 cm 0.6-1.0 LVID Systole (2D) 2.8 cm 2.5-4.0 LVOT Diameter 2.0 cm LV Mass (2D Cubed) 118.47 g 88.00-224.00 LV Mass Index (2D Cubed) 55 g/m2 49-115 Relative Wall Thickness (2D) 0.40 <=0.42 LV Fractional Shortening/Ejection Fraction 2D/MM LV Fractional Shortening (2D) 37 % 25-43 LV EF (2D Teichholz) 67 % LV Diastolic Volume (4C MOD) 97 ml LV EF (4C MOD) 57 % LV Diastolic Volume (2C MOD) 93 ml LV EF (2C MOD) 63 % LV Diastolic Volume (BP MOD) 99 ml 62-150 LV Diastolic Volume Index (BP MOD) 46 ml/m2 34-74 LV Systolic Volume (BP MOD) 38 ml 21-61 LV Systolic Volume Index (BP MOD) 18 ml/m2 11-31 LV EF (BP MOD) 61 % 52-72 LV Diastolic Length (4C) 8.1 cm LV Systolic Length (4C) 7.1 cm LV Stroke Volume (4C MOD) 56 ml Atria Name Value Normal LA Dimensions LA Volume (4C A-L) 34 ml LA Volume (BP A-L) 36 ml RA Dimensions RA Systolic Major [place] Length (4C) 5.0 cm 2.1-2.7 RA Area (4C) 14.8 cm2 <=18.0 Report Signatures
--- OUTSIDE RECORDS SUMMARY | 2025-04-13 13:40 | XMS_ITS | Clinical Summary ---
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 Assessment & Plan (08/10/2020 12:53 PM WINTER INTERN): Based on nodular appearance of the liver [...] 08/10/2020 Assessment & Plan (08/10/2020 12:51 PM WINTER INTERN): Based on imaging studies, concerning for hepatocellular [...] 021 Assessment & Plan (08/10/2020 12:54 PM WINTER INTERN): Fatty infiltration of the liver has been [...] on file Legal Sex Male 3:15 AM WINTER INTERN Gender Identity Not on file Sexual Orientation Not on file 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 on file Not on file Not on file Obstetrics History Last Filed Vital Signs Vital Sign Reading Time Taken Comments Blood Pressure 137/92 08/10/2020 10:03 AM WINTER INTERN Pulse 84 08/10/2020 10:03 AM WINTER INTERN Temperature 36.4 C (97.5 F) 08/10/2020 10:03 AM WINTER INTERN Respiratory Rate - - Oxygen Saturation - - Inhaled Oxygen Concentration - - Weight 91.5 kg (201 lb 12.8 oz) 021 10:03 AM WINTER INTERN Height 180.3 cm (5' 11) 08/10/2020 10: 03 AM WINTER INTERN Body Mass Index 28.15 08/10/2020 10:03 AM WINTER INTERN Plan of Treatment Not on file Medical Devices Implanted Type Area Transportation Operations Manager Device Identifier Shelf Expiration Date Model / Serial / Lot Left Acl Repair-05/02/2009 Implanted:2008 (Quantity not on file) Knee Insurance [facility] Care Teams Boomswing Operator Relationship Specialty Start Date End Date Hayder Barrientos MD [address] [address] PCP - General Internal Medicine 02/26/20 Katherine Kellogg RN [address] [address] Secondary Liver Coordinator 02/23/20
--- OUTSIDE RECORDS SUMMARY | 2025-04-13 13:40 | XMS_ITS | Clinical Summary ---
Author Organization [facility] Address [address] [place] [address] Care Team Providers Care Manager Program Name Role Phone Unavailable Primary Care Provider [...] COVID-19 Vaccine ( - 2023-2 5 season) 2025 Meningococcal B Vaccine Aged Out No l [...]
--- OUTSIDE RECORDS SUMMARY | 2025-04-13 13:40 | XMS_ITS | Clinical Summary ---
Author Organization [facility] Address [address] [facility], [address] [address] Phone Care Team Providers Care Railroad Track Repair Supervisor Name Role Phone Hayder Barrientos MD Primary Care Provider Allergies No known active allergies Medications omeprazole [...] on file Legal Sex Male 10:34 AM ENVIRONMENTAL WEB CRAWLER Gender Identity Not on file Sexual Orientation Not on file Last Filed Vital Signs Vital Sign Reading Time Taken Comments Blood Pressure 125/89 09/22/2018 10:02 AM ENVIRONMENTAL WEB CRAWLER Pulse 70 09/22/2018 8:56 AM ENVIRONMENTAL WEB CRAWLER Temperature 36 C (96.8 F) 09/22/2018 10:02 AM ENVIRONMENTAL WEB CRAWLER Respiratory Rate 14 09/22/2018 10:02 AM ENVIRONMENTAL WEB CRAWLER Oxygen Saturation 96% 09/22/2018 10:02 AM ENVIRONMENTAL WEB CRAWLER Inhaled Oxygen Concentration - - Weight 87.1 kg (192 lb) 09/03/2018 9:00 AM ENVIRONMENTAL WEB CRAWLER Height 177.8 cm (5' 10) 09/03/2018 9:00 AM ENVIRONMENTAL WEB CRAWLER Body Mass Index 27.55 09/03/2018 9:00 AM ENVIRONMENTAL WEB CRAWLER Plan of Treatment Health Maintenance Due Date Last Done Comments Hepatitis C Virus (HCV) Screening 1975 TdaP Immunization 1975 Hepatitis B Immunization (1 of 3 - 19+ 3-dose series) 12/23/1994 Cologuard 12/23/2020 Colonoscopy 12/23/2020 Colorectal Cancer Screening 12/23/2020 Immunochemical Fecal Occult Blood 12/23/2020 Influenza Immunization (#1) 2025 SARS-COV-2 Immunization ( season) 2025 Respiratory Syncytial Virus (RSV) Immunization (Adult) [...] Insurance MEDICAID [employer] Care Teams Railroad Track Repair Supervisor Relationship Specialty Start Date End Date Hayder Barrientos MD [address] [place] [address] PCP - General Internal Medicine 08/25/18
--- OUTSIDE RECORDS SUMMARY | 2025-04-13 13:40 | XMS_ITS | Clinical Summary ---
Author Organization [facility] Address [address] [place] [address] Care Team Providers Care Planning Analyst Name Role Phone Unavailable Primary Care Provider Unavailabl e Source Comments [facility],non-owned Affiliates and Associated Physician Practices is amultiple site organization consisting of ambulatory clinics and hospital sitesin [place], [place], [place] and [place]. This disclosure is being madepursuant to the Care Everywhere program and may not contain all information available regarding this patient. Last updated 18.[facility] [employer] Allergies No known active allergies Medications * [...] on file Legal Sex Male 3:17 AM ANKLE PATCH MOLDER Gender Identity Not on file Sexual Orientation Not on file Last Filed Vital Signs Vital Sign Reading Time Taken Comments Blood Pressure 134/86 07/06/2015 3:55 PM ANKLE PATCH MOLDER Pulse 87 07/06/2015 3:55 PM ANKLE PATCH MOLDER Temperature 36.7 C (98 F) 07/06/2015 3:55 PM ANKLE PATCH MOLDER Respiratory Rate 16 07/06/2015 3:55 PM ANKLE PATCH MOLDER Oxygen Saturation 98% 07/06/2015 3:55 PM ANKLE PATCH MOLDER Inhaled Oxygen Concentration - - Weight 84.8 kg (187 lb) 07/06/2015 3:55 PM ANKLE PATCH MOLDER Height 180.3 cm (5' 11) 07/06/2015 3:55 PM ANKLE PATCH MOLDER Body Mass Index 26.08 07/06/2015 3:55 PM ANKLE PATCH MOLDER Plan of Treatment Health Maintenance Due Date [...] of 3 - 19+ 3-dose series) 12/23/1994 DEPRESSION SCREENING 08/05/2024 COVID-19 VACCINE (1 - 2023-2 5 season) 2025 INFLUENZA VACCINE (#1) 2025 ZOSTER VACCINE (1 [...] patient's age to complete this topic Insurance [facility]
== END 2025-04-13 12:05 | disposition home or self-care (01) ==
LOC: CHSIMG 12:06
PROVIDERS: PCP Internal Medicine; Visit Provider Nurse Practitioner Family
DX: R07.9 Chest pain, unspecified (principal); I51.7 Cardiomegaly; R06.09 Other forms of dyspnea; J32.9 Chronic sinusitis, unspecified
CPT/HCPCS: 70486; 93306